=== PATIENT | male | born 2000 | race Caucasian/White ===

== ENCOUNTER 2024-07-06 16:38 | Emergency (ER) | payer SELFPAY ==
[2024-07-06 17:06] VITALS: BP 130/82; PULSE 74; RESP 18; TEMP 36.8; O2SAT 97; BMI 39.1
--- NOTE | 2024-07-06 17:18 | XR_ITS ---
Examination: Right elbow 3 views Technique: Elbow AP, oblique, lateral 3 views Exam date and time: July 06, 2024 1737 hrs. Indications: Work injury today with elbow pain Findings: No fracture No dislocation No foreign body Impression: No fracture.
--- NOTE | 2024-07-06 17:18 | XR_ITS ---
Examination: Shoulder,right, 3 views Technique: Shoulder AP internal rotation, AP external rotation, Y view shoulder, 3 views Exam date and time :July 06, 2024 1737 hrs. Indications: Injury at work today to the shoulder with shoulder pain Findings: No shoulder fracture or dislocation No acromioclavicular joint separation Impression: No shoulder fracture or dislocation
--- NOTE | 2024-07-06 17:18 | EDRME_ITS ---
Rapid Medical Screening Exam [facility] Arrival date/time: 07/06/24 16:38 24-year-old male with no known medical history presents to the emergency room with a chief complaint of pain and tenderness to his right bicep. Patient states he was moving a heavy object at work and states he heard a pop. I have greeted and performed a focused initial assessment of this patient. A comprehensive ED assessment and evaluation of the patient, analysis of all test results, and completion of the medical decision making process will be conducted by additional ED providers. Chief Complaint: Extremity Injury, Upper Vital signs: Vital Signs Temperature 98.2 F 07/06/24 17:06 Pulse Rate 74 07/06/24 17:06 Respiratory Rate 18 07/06/24 17:06 Blood Pressure 130/82 07/06/24 17:06 Pulse Oximetry (%) 97 07/06/24 17:06 Oxygen Delivery Method Room Air 07/06/24 17:06 Vital signs reviewed by provider: Yes
--- NOTE | 2024-07-06 18:31 | EDNOTE_ITS ---
Upper Extremity Injury RME/HPI General Chief Complaint: Extremity Injury, Upper Stated Complaint: Right arm injury today Time Seen by Provider: 07/06/24 18:19 Arrival date/time: 07/06/24 16:38 RME / HPI RME / HPI narrative: 07/06/24 16:38 24-year-old male with no known medical history presents to the emergency room with a chief complaint of pain and tenderness to his right bicep. Patient states he was moving a heavy object at work and states he heard a pop. I have greeted and performed a focused initial assessment of this patient. A comprehensive ED assessment and evaluation of the patient, analysis of all test results, and completion of the medical decision making process will be conducted by additional ED providers. -------- This section includes all my notes and documentations, including HPI, PE, and ED course. Dusty Hart MD HPI: 24yo male with no significant past medical history presents to the ED for a chief complaint of pain to his right bicep. 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 He denies any other injuries. No other complaints reported. ROS: All negative except as documented in HPI. Physical Exam: General: Alert and oriented. No acute distress when remaining still. Eyes: Conjunctivae and lids clear. ENT: No nasal congestion. Neck: Supple. Heart: RRR. Lungs: No respiratory distress. Good air movement. No rhonchi, wheezing, rales. Abdomen: Soft and nontender. Legs: No clubbing, cyanosis, edema. Skin: Warm and dry. Neuro: Alert and oriented X 3. Right Arm: No focal tenderness. Limited range of motion at the elbow due to pain. No NVT injury. I reviewed all diagnostic test results. My interpretation of the right elbow and shoulder x-rays are no acute findings. At this point, diagnoses include muscle strain of right upper extremity. Treatment here included arm sling. Recommended a trial of conservative treatment. Based on my best medical judgment, made decision no further evaluation or treatment indicated at this time. Patient understands and agrees to the discharge instructions customized and printed, see below. Discharge Instructions from Dr. Hart printed for you: 1. After evaluation, you sprained/strained your right arm. 2. Wear the arm sling for 4 days for rest needed to heal then as needed. 3. Apply ice for 20 minutes every 2-3 hours today and tomorrow. 4. Ibuprofen 800 mg every 6-8 hours today and tomorrow to decrease inflammation then as needed. Tylenol codeine for severe pain. 5. See a private doctor on 07/09/2024 for recheck and further care If not significantly improving, ask for MRI imaging to make sure there is no severe tears needing surgery. 6. Seek immediate medical care with intolerable pain, if you can't move your fingers, your fingers turn cold and blue, or with any concerns. Dusty Hart MD Related Data Previous Rx's ?Medication ?Instructions ?Recorded acetaminophen 650 mg 650 mg PO Q8H PRN fever or p ain 12/12/17 tablet,extended release #30 tabs ibuprofen 600 mg tablet 600 mg PO Q8H PRN fever or p ain 12/12/17 #30 tabs acetaminophen 300 mg-codeine 30 mg 2 tab PO TID PRN pa in #20 tabs 07/06/24 tablet ibuprofen 800 mg tablet 800 mg PO Q8H PRN pain #30 t abs 07/06/24 Allergies Allergy/AdvReac Type Severity Reaction Status Date / Time No Known Allergies Allergy Verified 07/06/24 16:44 Review of Systems Review of Systems Systems Reviewed: All systems reviewed, normal except as documented Past Medical History Past Medical History CARDIAC: Negative Congestive Heart Failure RESPIRATORY: Negative Chronic Obstructive Pulmonary Disease (COPD) GENITOURINARY: Negative Renal Disease ENDOCRINE: Negative Diabetes Mellitus Type 1 or Diabetes Mellitus Type 2 Social History SMOKING STATUS: Never smoker ED Exam Narrative Physical exam: As noted in HPI. Course Quality Measures none Orders Category Date Time Status sling [Splint / Immobilizer] STAT Care 07/06/24 18:45 Completed XR elbow comp RT min 3V Stat Exams 07/06/24 17:18 Completed XR shoulder RT min 2V Stat Exams 07/06/24 17:18 Completed Vital Signs Vital signs: Vital Signs Temperature 98.2 F 07/06/24 17:06 Pulse Rate 74 07/06/24 17:06 Respiratory Rate 18 07/06/24 17:06 Blood Pressure 130/82 07/06/24 17:06 Pulse Oximetry (%) 97 07/06/24 17:06 Oxygen Delivery Method Room Air 07/06/24 17:06 Extremity Injury MDM Narrative MDM Narrative:: Scribe Attestation: 07/06/24 - Shala Rogers am scribing for and in the presence of Dr. Hart. Patient data External records reviewed:: [facility] previous records (Per chart review, patient has no relevant previous ED visits.) Clinical information provided by:: patient Social determinants that could affect healthcare access:: none Patient has the following chronic illnesses:: none How is presenting disease/condition affected by chronic disease/condition?: no chronic disease Evaluation data The following diagnostics were reviewed and interpreted by me:: radiology exam(s) Lab and/or radiology exams considered but not ordered:: none Interpretation Summary: Right arm strain Medications / Prescriptions Medications or Prescriptions considered but not ordered:: none Medication administrations:: none Consultations Consultation(s) initiated? (list below): No Diagnosis Upper Extremity Injury Differential Diagnosis: dislocation of shoulder and fracture of humerus Most likely diagnosis given after review of the tests above:: Muscle strain of right upper extremity Admission Indicated Admission indicated?: not indicated Explain why admission is indicated or not indicated:: No criteria for admission. Admission Request Was there a request for admission?: No Disposition Plan Disposition Plan: Discharge Discharge Attestation Discharge Attestation: The patient and all family members were given an opportunity to ask questions and understood the discharge instructions. Discharge instructions specifically effects, indications for sooner follow up or return to the emergency department, and the expected course of current diagnosis. Patient condition: Stable Discharge Plan Plan Patient Disposition: HOME (Self Care) Prescriptions/Referrals Prescriptions/Med Rec: New ibuprofen 800 mg tablet 800 mg PO Q8H PRN (Reason: pain) Qty: 30 0RF acetaminophen-codeine 300-30 mg tablet 2 tab PO TID MDD 6 PRN (Reason: pain) Qty: 20 0RF No Action acetaminophen 650 mg tablet extended release 650 mg PO Q8H PRN (Reason: fever or pain) Qty: 30 0RF Rx Instructions: swallow whole; do not crush, chew, break, dissolve, cut, or open ibuprofen 600 mg tablet 600 mg PO Q8H PRN (Reason: fever or pain) Qty: 30 0RF Rx Instructions: prn pain / fever Problem List Clinical Impression: Muscle strain of left upper extremity Patient/Caregiver Discharge Instructions Discharge Activity: activity as tolerated Education Materials: ED Muscle Strain, Extremity Additional Instructions: Discharge Instructions from Dr. Hart printed for you: 1. After evaluation, you sprained/strained your right arm. 2. Wear the arm sling for 4 days for rest needed to heal then as needed. 3. Apply ice for 20 minutes every 2-3 hours today and tomorrow. 4. Ibuprofen 800 mg every 6-8 hours today and tomorrow to decrease inflammation then as needed. Tylenol codeine for severe pain. 5. See a private doctor on 07/09/2024 for recheck and further care If not significantly improving, ask for MRI imaging to make sure there is no severe tears needing surgery. 6. Seek immediate medical care with intolerable pain, if you can't move your fingers, your fingers turn cold and blue, or with any concerns. Print Language: Togolese Stand Alone Forms: Susan Award Info., Patient Portal Info Letter
== END 2024-07-06 19:58 | disposition home or self-care (01) ==
PROVIDERS: Emergency Provider Emergency Medicine
DX: S46.911A Strain of unspecified muscle, fascia and tendon at shoulder and upper arm level, right arm, initial encounter (principal); X50.0XXA Overexertion from strenuous movement or load, initial encounter; Y99.0 Civilian activity done for income or pay
CPT/HCPCS: 73030; 73080; 99283; A4565